=== PATIENT | female | born 1950 | race Caucasian/White ===

== ENCOUNTER 2023-12-10 09:04 | Inpatient (IN) | payer MEDICARE, OTHER ==
[~2023-12-10] VITALS: Ht 167.6 cm; Wt 79.9 kg
[2023-12-10] MEDS ORDERED: dilTIAZem 25 MG/5 ML VIAL IV ONE (09:15)
[2023-12-10] MEDS ORDERED: NS 1,000 ML IV ONE (09:30)
[2023-12-10 09:37] LABS: BASO # 0.1 K/mm3 (0.0-0.2); BASO % 0.9 % (0.0-2.0); EOS % 0.5 % (0.0-4.0); GRAN # 5.6 K/mm3 (1.4-6.5); GRAN % 64.1 % (42.2-75.2); HEMATOCRIT 44.6 % (37.0-47.0); HEMOGLOBIN 15.1 g/dl (12.5-16.0); LYMPH # 2.3 K/mm3 (1.2-3.4); LYMPH % 26.4 % (20.0-51.0); MEAN CELL VOLUME 93 fl (80.0-100.0); MEAN CORPUSCULAR HEMOGLOBIN 31 pg (27-31); MEAN CORPUSCULAR HGB CONC 34 g/dl (33.0-37.0); MEAN PLATELET VOLUME 9.5 fl (7.4-10.4); MONO # 0.7 K/mm3 (0.1-0.6); MONO % 7.6 % (1.7-9.3); PLATELET COUNT 247 K/mm3 (130-400); RED BLOOD COUNT 4.81 M/mm3 (4.10-5.30); REDCELL DISTRIBUTION WIDTH-CV 14.5 % (11.5-14.5)
[2023-12-10 09:41] LABS: INR 1.1 (0.8-3.0); PROTHROMBIN TIME 11.6 SECONDS (9.7-12.8)
[2023-12-10 09:50] LABS: ALANINE AMINOTRANSFERASE 20 U/L (0-55); ALBUMIN 3.9 gm/dL (3.4-4.8); ALKALINE PHOSPHATASE 83 U/L (40-150); ANION GAP 12 mmol/L (7-16); AST,SGOT 16 U/L (5-34); BILIRUBIN,TOTAL 0.5 mg/dL (0.2-1.2); BLOOD UREA NITROGEN 13 mg/dL (10-20); CALCIUM 9.6 mg/dL (8.4-10.2); CARBON DIOXIDE 22 mmol/L (23-31); CHLORIDE 105 mmol/L (98-107); CREATININE, serum 0.76 mg/dL (0.57-1.11); GLUCOSE 153 mg/dL (70-99); POTASSIUM 3.9 mmol/L (3.5-4.5); SODIUM 139 mmol/L (136-145); TOTAL PROTEIN 7.5 gm/dL (6.2-8.1)
[2023-12-10 09:57] LABS: TROPONIN-I < 0.010 ng/mL (0.00-0.033)
[2023-12-10] MEDS ORDERED: COZAAR 50MG50 MG/TAB PO (10:32)
[2023-12-10] MEDS ORDERED: GLUCOPHAGE500 MG/TAB PO (10:32)
[2023-12-10] MEDS ORDERED: PROTONIX 40MG T40 MG PO (10:33)
[2023-12-10 13:13] VITALS: BP 137/82; PULSE 69; TEMP 97.8
[2023-12-10] MEDS ORDERED: NS 1,000 ML IV SCH (13:15)
[2023-12-10] MEDS ORDERED: Ondansetron 4 MG/2 ML VIAL IV PRN (13:15)
[2023-12-10] MEDS ORDERED: Acetaminophen 500 MG TAB PO PRN (13:15)
[2023-12-10] MEDS ORDERED: *Potassium Replacement Protocol MC SCH (13:30)
[2023-12-10] MEDS ORDERED: Potassium Bicarbonate/Citrate 20 MEQ Effervescent TAB PO ONE (13:30)
[2023-12-10 15:43] LABS: MAGNESIUM 1.8 mg/dL (1.6-2.6); PHOSPHOROUS 3.2 mg/dL (2.3-4.7)
[2023-12-10 16:23] VITALS: BP 111/69; PULSE 67; TEMP 98
[2023-12-10] MEDS ORDERED: Insulin Aspart (NovoLOG) SQ SCH ×2 (17:00)
--- NOTE | 2023-12-10 18:45 | NUR ---
PT RESTING IN BED. PT IS ON RA. PT HAS NS AT 100ML/HR. PT IS SR ON TELE. PT IS AXOX3 AND HAS CALL LIGHT. PT INSTRUCTED TO CALL WITH ALL NEEDS. 2019-DISCUSSED WITH PT NPO AT MIDNIGHT FOR STRESS TEST AND LOOP RECORDER TOMORROW. DISCUSSED SOTALOL AND LOVENOX INJECTIONS WITH PT AND ALL QUESTIONS ANSWERED. PT VERBALIZED UNDERSTANDING.
[2023-12-10] MEDS ORDERED: Heparin 5,000 UNITS/ML 1 ML VIAL IV PRN (19:00)
[2023-12-10] MEDS ORDERED: Heparin/D5W 250 ML IV SCH (19:00)
[2023-12-10] MEDS ORDERED: Heparin 5,000 UNITS/ML 1 ML VIAL IV ONE (19:00)
--- NOTE | 2023-12-10 19:23 | NUR ---
1904-THIS RN CALLED TO CLARIFY ANTICOAGULATION. ONE PROGRESS NOTE MENTIONS LOVENOX AND ONE PROGRESS NOTE MENTIONS HEPARIN DRIP. STATES HE IS OKAY WITH EITHER ONE. CALLED MYAH MOISE AND UPDATED STATES WE WILL GO BACK TO LOV[place]OX.
[2023-12-10 19:44] VITALS: BP 142/78; PULSE 63; TEMP 97.7
[2023-12-10 20:56] VITALS: BP_SYST 142
[2023-12-10 22:48] VITALS: BP 121/72; PULSE 66; TEMP 97.5
[2023-12-11] VITALS (15 sets, daily range): BP systolic 115–148; BP diastolic 68–87; PULSE 50–90; TEMP 97.4–98.1
--- NOTE | 2023-12-11 07:45 | NUR ---
Pt assessment complete. A&O x4. Heart rate irregular on tele. INT to R wrist and L wrist- no redness/edema noted. Remains NPO status.
[2023-12-11 07:55] LABS: BASO # 0.1 K/mm3 (0.0-0.2); BASO % 1.1 % (0.0-2.0); EOS # 0.1 K/mm3 (0.0-0.7); EOS % 1.5 % (0.0-4.0); GRAN # 3.4 K/mm3 (1.4-6.5); GRAN % 54.7 % (42.2-75.2); LYMPH # 2.1 K/mm3 (1.2-3.4); LYMPH % 33.5 % (20.0-51.0); MEAN CELL VOLUME 93 fl (80.0-100.0); MEAN CORPUSCULAR HEMOGLOBIN 31 pg (27-31); MEAN CORPUSCULAR HGB CONC 33 g/dl (33.0-37.0); MEAN PLATELET VOLUME 9.8 fl (7.4-10.4); MONO # 0.6 K/mm3 (0.1-0.6); MONO % 8.9 % (1.7-9.3); PLATELET COUNT 217 K/mm3 (130-400); RED BLOOD COUNT 4.18 M/mm3 (4.10-5.30); REDCELL DISTRIBUTION WIDTH-CV 14.6 % (11.5-14.5)
[2023-12-11 08:08] LABS: CALCIUM 9.1 mg/dL (8.4-10.2); CREATININE, serum 0.71 mg/dL (0.57-1.11); MAGNESIUM 1.8 mg/dL (1.6-2.6); POTASSIUM 4.2 mmol/L (3.5-4.5)
[2023-12-11] MEDS ORDERED: Losartan 50 MG TAB PO SCH (09:00)
[2023-12-11] MEDS ORDERED: Regadenoson 0.08 MG/ML 5 ML SYRINGE IV SCH (09:45)
--- NOTE | 2023-12-11 11:08 | NUR ---
Assessment unchanged. Remains NPO status.
[2023-12-11] MEDS ORDERED: Cephalexin 500 MG CAP PO SCH (12:07)
--- NOTE | 2023-12-11 12:56 | NUR ---
Initial visit; Patient out for tests though Envelope Maker talked with her and sister about how Shruti's stay had been. They stated that she has had good care minus one glitch. Envelope Maker encouraged them to let us know what Shruti needs and Envelope Maker will keep her in her prayers and will return another time to visit with Shruti.
--- NOTE | 2023-12-11 15:41 | NUR ---
Clipper Machine Operator met with patient to discuss discharge planning. Patient was at the [facility] for a planned hip surgery, however was transferred here for AFIB. Patient lives in [place], [place] with her , Gerber who is at bedside. Patient sees NORMA Heredia for primary care back home. Patient has a walker available at home but normally does not use it. Patient also has her home cpap at bedside. Patient is independent with ADLS and plans to return home at time of discharge. Her hip surgery will be rescheduled. Patient advised her , Gerber is DPOA-[facility]. Discharge Plan: Home
--- NOTE | 2023-12-11 20:04 | NUR ---
RECIEVED REPORT FROM MARIS ELLIS.
[2023-12-11] MEDS ORDERED: Warfarin 5 MG TAB PO SCH (21:00)
--- NOTE | 2023-12-11 21:57 | NUR ---
Pt alert and oriented. VSS,laying in bed watching TV. Would really love to go home tomorrow. Shift assessment complete, medicated per emar. IV to R wrist CDI, denies pain at this time. Call light within reach.
[2023-12-12 01:09] VITALS: BP_SYST 130
[2023-12-12 03:28] VITALS: BP 137/80; PULSE 55; TEMP 97.8
[2023-12-12 05:23] VITALS: BP_SYST 137
[2023-12-12 06:40] LABS: BASO # 0.1 K/mm3 (0.0-0.2); BASO % 0.9 % (0.0-2.0); EOS # 0.1 K/mm3 (0.0-0.7); EOS % 1.4 % (0.0-4.0); GRAN # 3.7 K/mm3 (1.4-6.5); GRAN % 52.6 % (42.2-75.2); HEMATOCRIT 39.8 % (37.0-47.0); HEMOGLOBIN 13.2 g/dl (12.5-16.0); LYMPH # 2.5 K/mm3 (1.2-3.4); LYMPH % 35.9 % (20.0-51.0); MEAN CELL VOLUME 94 fl (80.0-100.0); MEAN CORPUSCULAR HEMOGLOBIN 31 pg (27-31); MEAN CORPUSCULAR HGB CONC 33 g/dl (33.0-37.0); MEAN PLATELET VOLUME 9.7 fl (7.4-10.4); MONO # 0.6 K/mm3 (0.1-0.6); MONO % 8.9 % (1.7-9.3); PLATELET COUNT 230 K/mm3 (130-400); RED BLOOD COUNT 4.22 M/mm3 (4.10-5.30); REDCELL DISTRIBUTION WIDTH-CV 14.6 % (11.5-14.5)
[2023-12-12 06:48] LABS: CALCIUM 9.3 mg/dL (8.4-10.2); CREATININE, serum 0.74 mg/dL (0.57-1.11); MAGNESIUM 1.7 mg/dL (1.6-2.6); POTASSIUM 4.2 mmol/L (3.5-4.5)
[2023-12-12 07:44] LABS: INR 1.1 (0.8-3.0); PROTHROMBIN TIME 12.1 SECONDS (9.7-12.8)
[2023-12-12 08:17] VITALS: BP 125/60; PULSE 61; TEMP 98
[2023-12-12 09:00] VITALS: BP_SYST 125
[2023-12-12] MEDS ORDERED: CEPHALEXIN500 M1 PO (09:12)
[2023-12-12] MEDS ORDERED: COUMADIN 5MG5 MG/TAB PO (09:13)
[2023-12-12] MEDS ORDERED: BETAPACE 80MG80 MG PO (09:14)
--- NOTE | 2023-12-12 10:05 | NUR ---
Follow-up visit attempt; Physician with patient. Cold Storage Worker left card letting Shruti know she is available for her and wished her God's blessings.
== END 2023-12-12 12:17 | disposition home or self-care (01) | DRG 262 ==
LOC: COL.ER 09:04 → EDBD 09:05 → MEDICAL 12:21
PROVIDERS: Emergency Medicine; Internal Medicine Cardiovascular Disease; Nurse Practitioner Family; ADMIT Internal Medicine
PROC: 0JH632Z Insertion of Monitoring Device into Chest Subcutaneous Tissue and Fascia, Percutaneous Approach (ICD-10-PCS; principal; 2023-12-11)
DX: I48.0 Paroxysmal atrial fibrillation (principal); Z96.641 Presence of right artificial hip joint; I10 Essential (primary) hypertension; K21.9 Gastro-esophageal reflux disease without esophagitis; E87.6 Hypokalemia; Z96.653 Presence of artificial knee joint, bilateral; M85.80 Other specified disorders of bone density and structure, unspecified site; G47.33 Obstructive sleep apnea (adult) (pediatric); E11.9 Type 2 diabetes mellitus without complications; Z88.5 Allergy status to narcotic agent; Z79.82 Long term (current) use of aspirin; Z79.84 Long term (current) use of oral hypoglycemic drugs; Z99.89 Dependence on other enabling machines and devices; Z87.440 Personal history of urinary (tract) infections
CPT/HCPCS: A9500-JZ; C1764; J1650; J2785; J7030